=== PATIENT | female | born 1990 | race Caucasian/White ===

== ENCOUNTER 2022-09-04 06:00 | Inpatient (IN) | payer BC ==
[2022-09-04] MEDS ORDERED: CITRIC ACID/SODIUM CITRATE 30 ML UNIT-DOSE CUP PO ONE (06:20)
[2022-09-04 06:33] VITALS: BMI 44.8
[2022-09-04] MEDS: ELECTROLYTE-148 SOLN 500 ML IV SCH ×2 (06:35→07:48)
[2022-09-04 07:43] LABS: POTASSIUM 3.9 mmol/L (3.5-5.1)
[2022-09-04 07:44] LABS: CALCIUM 8.8 mg/dL (8.5-10.1)
[2022-09-04 07:45] LABS: BLOOD UREA NITROGEN 7.7 mg/dL (7-18)
[2022-09-04 07:48] LABS: CREATININE 0.5 mg/dL (0.55-1.3)
[2022-09-04] MEDS ORDERED: ONDANSETRON 4 MG/2 ML VIAL IVPUSH PRN (07:59)
[2022-09-04] MEDS ORDERED: FENTANYL CITRATE/PF 50 MCG/ML VIAL ONE (08:04)
[2022-09-04] MEDS ORDERED: morphine SULFATE/PF 1 MG/2 ML (2cc Syringe - QUVA) ONE (08:04)
[2022-09-04] MEDS ORDERED: PHENYLEPHRINE HCL 10 MG/1 ML SINGLE DOSE VIAL ONE (08:10)
[2022-09-04] MEDS ORDERED: ELECTROLYTE-148 SOLN 500 ML IV ONE (08:15)
[2022-09-04] MEDS ORDERED: ceFAZolin SODIUM 1 GM VIAL ONE (08:27)
[2022-09-04] MEDS ORDERED: ePHEDrine SULFATE 50 MG/1 ML AMPULE ONE (08:28)
[2022-09-04] MEDS ORDERED: ONDANSETRON 4 MG/2 ML VIAL ONE (08:33)
[2022-09-04] MEDS ORDERED: OXYTOCIN 10 UNITS/ML VIAL ONE (08:56)
[2022-09-04] MEDS ORDERED: METHYLERGONOVINE MALEATE 0.2 MG/1 ML AMP IM PRN (10:21)
[2022-09-04] MEDS: OXYTOCIN 20 UNITS in 0.9% NS 20 UNIT/1,000 ML INFUS.BAG IV SCH (11:00)
[2022-09-04] MEDS: IBUPROFEN 800 MG/8 ML IJ IVPB PRN ×2 (11:56→18:13)
[2022-09-04] MEDS ORDERED: ACETAMINOPHEN 1000 MG/100 ML BAG IVPB ONE (15:30)
[2022-09-04] MEDS: FERROUS SO4 325 MG TABLET (FP) PO SCH (21:41)
[2022-09-05] MEDS: IBUPROFEN 800 MG/8 ML IJ IVPB PRN (00:32)
[2022-09-05] MEDS: SIMETHICONE 80 MG TAB.CHEW (FP) PO PRN ×4 (00:33→20:08)
[2022-09-05] MEDS: oxyCODONE HCL 5 MG TABLET PO PRN ×4 (03:18→20:09)
[2022-09-05 06:28] LABS: BASO % 0.4 % (0-2.0); EOS % 1.1 % (0-4.5); HEMATOCRIT 29.7 % (32.4-45.2); HEMOGLOBIN 10.2 GM/dL (10.7-15.3); LYMPH % 20.3 % (8-40); MCH 28.5 pg (25.7-33.7); MCHC 34.4 g/dl (32.0-36.0); MEAN PLT VOLUME 8.3 fl (7.5-11.1); MONO % 5.5 % (3.8-10.2); NEUT % 72.7 % (42.8-82.8); PLATELET COUNT 197 10^3/uL (134-434); RBC 3.58 M/mm3 (3.60-5.2); RDW 14.7 % (11.6-15.6); WHITE BLOOD COUNT 8.1 K/mm3 (4.0-10.0)
[2022-09-05] MEDS: IBUPROFEN 600 MG TABLET (FP) PO PRN ×2 (08:11→15:21)
[2022-09-05] MEDS: PRENATAL VITAMINS W/ FOLIC ACID TABLET (FP) PO SCH (09:50)
[2022-09-05] MEDS: ACETAMINOPHEN 325 MG TABLET (FP) PO PRN ×2 (09:50→18:20)
[2022-09-05] MEDS: FERROUS SO4 325 MG TABLET (FP) PO SCH ×2 (09:50→21:29)
[2022-09-05] MEDS ORDERED: BISACODYL 10 MG SUPP.RECT RC PRN (10:21)
[2022-09-05] MEDS: ELECTROLYTE-148 SOLN 500 ML IV SCH ×2 (20:03→20:04)
[2022-09-05] MEDS: ELECTROLYTE-148 SOLN 1,000 ML IV SCH ×2 (20:03→20:04)
[2022-09-05] MEDS: OXYTOCIN 20 UNITS in 0.9% NS 20 UNIT/1,000 ML INFUS.BAG IV SCH (20:04)
[2022-09-05] MEDS: SENNOSIDES/DOCUSATE COMBO (SENNA PLUS) TABLET (UD) PO PRN (20:08)
[2022-09-06] MEDS: SIMETHICONE 80 MG TAB.CHEW (FP) PO PRN ×4 (00:11→20:14)
[2022-09-06] MEDS: IBUPROFEN 600 MG TABLET (FP) PO PRN ×4 (00:11→22:38)
[2022-09-06] MEDS: oxyCODONE HCL 5 MG TABLET PO PRN ×5 (01:38→20:14)
[2022-09-06] MEDS: ACETAMINOPHEN 325 MG TABLET (FP) PO PRN ×2 (05:28→13:56)
[2022-09-06] MEDS: FERROUS SO4 325 MG TABLET (FP) PO SCH ×2 (09:00→22:25)
[2022-09-06] MEDS: PRENATAL VITAMINS W/ FOLIC ACID TABLET (FP) PO SCH (09:00)
[2022-09-06] MEDS: SENNOSIDES/DOCUSATE COMBO (SENNA PLUS) TABLET (UD) PO PRN (20:14)
[2022-09-07] MEDS: oxyCODONE HCL 5 MG TABLET PO PRN ×2 (01:04→07:59)
[2022-09-07] MEDS: IBUPROFEN 600 MG TABLET (FP) PO PRN ×2 (04:06→11:05)
[2022-09-07] MEDS: SIMETHICONE 80 MG TAB.CHEW (FP) PO PRN (07:59)
[2022-09-07 09:33] VITALS: BP 112/76; PULSE 94; RESP 18; TEMP 98.4
[2022-09-07] MEDS: FERROUS SO4 325 MG TABLET (FP) PO SCH (10:03)
[2022-09-07] MEDS: PRENATAL VITAMINS W/ FOLIC ACID TABLET (FP) PO SCH (10:03)
== END 2022-09-07 12:37 | disposition home or self-care (01) | DRG 788 ==
LOC: JLDR 06:00 → J3W 10:55
PROVIDERS: ADMIT Obstetrics & Gynecology; ATTEND Obstetrics & Gynecology
PROC: 10D00Z1 Extraction of Products of Conception, Low, Open Approach (ICD-10-PCS; principal; 2022-09-04)
DX: O34.211 Maternal care for low transverse scar from previous cesarean delivery (principal); Z3A.39 39 weeks gestation of pregnancy; Z37.0 Single live birth
CPT/HCPCS: 36415; 80048; 85025; 88307-TC; 94010